=== PATIENT | female | born 1985 | race Caucasian/White ===

== ENCOUNTER 2020-05-24 05:50 | Inpatient (IN) | payer OTHER, SELFPAY ==
[2020-05-15 14:35] VITALS: BMI 30.2
[2020-05-24] VITALS (195 sets, daily range): BP systolic 59–120; BP diastolic 32–85; PULSE 63–160; TEMP 36.3–36.9; O2SAT 88–100; BMI 31.2
[2020-05-24 06:42] LABS: Basophils Percent Auto 0.1 % (0.2-1.2); Eosinophils Absolute Auto 0.1 K/mm3 (0-0.3); Eosinophils Percent Auto 0.7 % (0-4.4); Hematocrit 35.5 % (37.0-47.0); Hemoglobin 12.4 g/dL (12.0-15.0); Immature Granulocyte Absolute 0.03 K/mm3 (0.00-0.031); Immature Granulocyte Percent A 0.4 % (0-0.5); Immature Platelet Fraction Pct 4.4 % (0.9-11.2); Lymphocytes Absolute Auto 0.98 K/mm3 (0.9-3.2); Lymphocytes Percent Auto 14.2 % (18.3-44.2); Mean Corpuscular HGB Conc 34.9 g/dl (32-36); Mean Corpuscular Volume 94.4 fl (80-100); Mean Platelet Volume 10.9 fl (7.4-10.4); Monocytes Absolute Auto 0.4 K/mm3 (0.1-0.6); Monocytes Percent Auto 5.5 % (2.6-8.5); Neutrophils Absolute Auto 5.5 K/mm3 (1.3-6.7); Neutrophils Percent Auto 79.1 % (45.5-73.1); Platelet Count Result 143 k/mm3 (150-375); Red Blood Count 3.76 M/mm3 (4.2-5.4); White Blood Count 6.9 K/mm3 (4.5-10.0)
[2020-05-24] MEDS: OXYTOCIN 30 UNITS/NS 500 ML 30 UNITS/500 ML BAG IV CONT (06:47)
[2020-05-24] MEDS: OXYTOCIN 30 UNITS/NS 500 ML 30 UNITS/500 ML BAG 125 UNITS IV CONT (06:47)
[2020-05-24] MEDS: LACTATED RINGERS 1,000 ML 125 ML IV CONT ×4 (06:48→21:08)
--- NOTE | 2020-05-24 06:52 | LDADM ---
This patient, Meron Harrington, was admitted to Labor/Delivery/Recovery 103 on 05/24/20 at 05:50. Plans for labor, pain management and were discussed with patient. Patient/family oriented to hospital policies and general routines including ID bracelet, bed and alarms, visiting hours, pain management, procedures, bathroom and other care routines, personal items, smoking policy, room service/diet and guest tray routines, security routines, and visiting hours. Patient/Family are encouraged to report perceived risks to care and to ask questions if they do not understand what they are told or what they should do. See OBIX for further documentation.
--- NOTE | 2020-05-24 07:50 | WPDOBADMIT ---
Obstetrics - Admit Note Admission Note: 35y/o @ 39w2d here for elective induction of labor VSS Contractions irregular FHR category 1 Cervix 1-2/thick/posterior/-2 AROM moderate amount of clear odorless fluid Epdiural as desired Anticipate record reviewed. No pertinent additions to the history and/or any subsequent changes in the physical findings that are not consistent with the expected course of the were found. Additions to the history and/or subsequent changes in the physical findings follow. None.
--- NOTE | 2020-05-24 07:53 | PM.OBPNVD ---
OB - PN: Subj Subjective Date/time seen: 05/24/20 07:53 Interval history: patient desires sterilization Patient comments: no complaints and pain well controlled OB - PN: Obj Data Labs CBC & Chem 7: 05/24/20 06:31 Labs: Laboratory Results - last 24 hr 05/24/20 05/24/20 06:31 06:31 WBC 6.9 RBC 3.76 L Hgb 12.4 Hct 35.5 L MCV 94.4 MCH 33.0 MCHC 34.9 RDW 13.0 Plt Count 143 L MPV 10.9 H Immature Gran % (Auto) 0.4 Neut % (Auto) 79.1 H Lymph % (Auto) 14.2 L [place] % (Auto) 5.5 Eos % (Auto) 0.7 Baso % (Auto) 0.1 L Lymph # (Auto) 0.98 [place] # (Auto) 0.4 Eos # (Auto) 0.1 Baso # (Auto) 0.0 Abs Immat Gran (auto) 0.03 Absolute Neuts (auto) 5.5 Absolute Nucleated RBC 0.0 Nucleated RBC % 0.0 % Immature Plt Fraction 4.4 Blood Type A Positive Antibody Screen Negative OB - PN A/P Plan day: 2 Plan: routine care and discharge home Comments: to have PP BTL before D/C Time Spent With Patient Time: Total time spent is greater than 50% in coordination of care (as documented) at patient's floor/unit and/or counseling patient: Exam Const: General: comfortable, no acute distress and alert Resp: Effort & Inspection: normal respiratory effort Auscultation: no crackles, no rales and no rhonchi Cardio: Rate: regular rate Heart sounds: no click, no murmurs and no rubs GI: Inspection: non-distended GI Palp: No Tenderness to palpation present (GI) Auscultation: normal bowel sounds Extrem: General: normal to inspection, no pedal edema and no calf tenderness
[2020-05-24 09:02] LABS: Amphetamine Screen Urine Negative (Negative); Barbiturate Screen Urine Negative (Negative); Benzodiazepines Screen Urine Negative (Negative); Cannabinoid Screen Urine Negative (Negative); Cocaine Screen Urine Negative (Negative); Methadone Screen Urine Negative (Negative); Opiate Screen Urine Negative (Negative); Phencyclidine Screen Urine Negative (Negative)
[2020-05-24 10:06] LABS: Rapid Plasma Reagin Non-Reactive (NonReactive)
--- NOTE | 2020-05-24 10:47 | WPDANESEPP ---
Anes - Eval Pre Procedure Procedure: Labor epidural Date/Time: 05/24/20 10:47 Surgeon: Vimal Chatman M.D. Preop Diagnosis: pain during labor Pre Op Diagnosis: IOL Patient Data Age: 35 Gender: F Height: 1.6 m Weight: 80 kg Last Vital Signs Temp 36.9 C 05/24/20 08:00 Pulse 80 05/24/20 10:46 BP 109/65 05/24/20 10:46 Allergies Allergy/AdvReac Type Severity Reaction Status Date / Time Penicillins Allergy Mild Unknown Verified 05/24/20 06:46 Home Medications Medication Instructions Recorded Confirmed Type [id number] fumarate-FA 1 tablet PO DAILY 05/24/20 05/24/20 History [] Laboratory Tests 05/24/20 05/24/20 05/24/20 06:31 06:31 06:31 WBC 6.9 K/mm3 K/mm3 (4.5-10.0) RBC 3.76 M/mm3 L M/mm3 (4.2-5.4) Hgb 12.4 g/dL g/dL (12.0-15.0) Hct 35.5 % L % (37.0-47.0) MCV 94.4 fl fl (80-100) MCH 33.0 pg pg (26-34) MCHC 34.9 g/dl g/dl (32-36) RDW 13.0 % % (11.5-14.5) Plt Count 143 k/mm3 L k/mm3 (150-375) MPV 10.9 fl H fl (7.4-10.4) Immature Gran % (Auto) 0.4 % % (0-0.5) Neut % (Auto) 79.1 % H % (45.5-73.1) Lymph % (Auto) 14.2 % L % (18.3-44.2) [place] % (Auto) 5.5 % % (2.6-8.5) Eos % (Auto) 0.7 % % (0-4.4) Baso % (Auto) 0.1 % L % (0.2-1.2) Lymph # (Auto) 0.98 K/mm3 K/mm3 (0.9-3.2) [place] # (Auto) 0.4 K/mm3 K/mm3 (0.1-0.6) Eos # (Auto) 0.1 K/mm3 K/mm3 (0-0.3) Baso # (Auto) 0.0 K/mm3 K/mm3 (0.0-0.1) Abs Immat Gran (auto) 0.03 K/mm3 K/mm3 (0.00-0.031) Absolute Neuts (auto) 5.5 K/mm3 K/mm3 (1.3-6.7) Absolute Nucleated RBC 0.0 K/mm3 K/mm3 (0.0-0.012) Nucleated RBC % 0.0 % % (0.0-0.2) % Immature Plt Fraction 4.4 % % (0.9-11.2) Urine Opiates Screen Urine Methadone Screen Ur Barbiturates Screen Ur Phencyclidine Scrn Ur Amphetamine Screen U Benzodiazepines Scrn Urine Cocaine Screen U Cannabinoids Screen RPR Non-reactive (NonReactive) Blood Type A Positive Antibody Screen Negative 05/24/20 08:40 WBC RBC Hgb Hct MCV MCH MCHC RDW Plt Count MPV Immature Gran % (Auto) Neut % (Auto) Lymph % (Auto) [place] % (Auto) Eos % (Auto) Baso % (Auto) Lymph # (Auto) [place] # (Auto) Eos # (Auto) Baso # (Auto) Abs Immat Gran (auto) Absolute Neuts (auto) Absolute Nucleated RBC Nucleated RBC % % Immature Plt Fraction Urine Opiates Screen Negative (Negative) Urine Methadone Screen Negative (Negative) Ur Barbiturates Screen Negative (Negative) Ur Phencyclidine Scrn Negative (Negative) Ur Amphetamine Screen Negative (Negative) U Benzodiazepines Scrn Negative (Negative) Urine Cocaine Screen Negative (Negative) U Cannabinoids Screen Negative (Negative) RPR Blood Type Antibody Screen Patient hx anesthesia problems: none Family hx anesthesia problems: none PMFSH Past Medical History Medical History (Updated 05/24/20 @ 10:48 by Sonia León CRNA) IUP (intrauterine ), incidental Obesity Family History Family History (Updated 05/15/20 @ 14:36 by Lila Nichole RN) Mother Hypertension Social History Social History Smoking status: Former smoker Second hand tobacco smoke exposure: Yes Substance use: never Gender identity (if verbalized by the patient): Female Sexual Orientation (if Verbalized by the Patient): Straight or Heterosexual Spiritual care concerns: No Exam Day of Procedure 05/24/20 10:47
--- NOTE | 2020-05-24 23:37 | PC.NURSE ---
Pitocin infusion started at 0647 on by Gris Lau RN.
[2020-05-25] VITALS (108 sets, daily range): BP systolic 93–131; BP diastolic 51–85; PULSE 65–226; RESP 12–19; TEMP 36.4–37.3; O2SAT 94–100
[2020-05-25] MEDS: SODIUM CHLORIDE 0.9% IV 300 ML 600 ML I-UTERINE (00:58)
[2020-05-25] MEDS: LACTATED RINGERS 1,000 ML 125 ML IV CONT (00:58)
[2020-05-25] MEDS: CLINDAMYCIN 900 MG/NS 50 ML 900 MG/50 ML PIGGYBACK 50 MG IVPB (01:42)
--- NOTE | 2020-05-25 04:32 | PM.IMHP ---
H&P: HPI History of Present Illness Chief complaint: IOL Narrative: Meron Harrington is a 35 year old female here for elective induction of labor Review of Systems Review of Systems: All systems reviewed & are unremarkable except as noted in HPI and below PMFSH Past Medical History Medical History IUP (intrauterine ), incidental Obesity Family History Family History Mother Hypertension Social History Social History Smoking status: Former smoker Second hand tobacco smoke exposure: Yes Substance use: never Gender identity (if verbalized by the patient): Female Sexual Orientation (if Verbalized by the Patient): Straight or Heterosexual Spiritual care concerns: No Meds Home Medications and Allergies Home Medications Medication Instructions Recorded Confirmed Type [id number] fumarate-FA 1 tablet PO DAILY 05/24/20 05/24/20 History [] Allergies Allergy/AdvReac Type Severity Reaction Status Date / Time Penicillins Allergy Mild Unknown Verified 05/24/20 06:46 Vital Signs Vital Signs - 24 hr 05/24/20 06:28 05/24/20 06:31 05/24/20 06:46 Temperature Pulse Rate 96 106 H 93 Blood Pressure 93/51 L 106/72 102/85 Pulse Oximetry 05/24/20 07:01 05/24/20 07:16 05/24/20 07:31 Temperature Pulse Rate 83 98 86 Blood Pressure 107/70 104/72 113/70 Pulse Oximetry 05/24/20 07:45 05/24/20 08:00 05/24/20 08:01 Temperature 98.5 F Pulse Rate 89 81 Blood Pressure 116/73 113/72 Pulse Oximetry 05/24/20 08:16 05/24/20 08:46 05/24/20 09:01 Temperature Pulse Rate 86 93 94 Blood Pressure 104/71 110/70 111/76 Pulse Oximetry 05/24/20 09:16 05/24/20 09:31 05/24/20 09:46 Temperature Pulse Rate 95 76 73 Blood Pressure 113/76 114/72 112/65 Pulse Oximetry 05/24/20 10:01 05/24/20 10:16 05/24/20 10:32 Temperature Pulse Rate 83 92 75 Blood Pressure 117/73 96/73 L 109/67 Pulse Oximetry 05/24/20 10:46 05/24/20 11:01 05/24/20 11:16 Temperature Pulse Rate 80 76 77 Blood Pressure 109/65 107/74 108/69 Pulse Oximetry 05/24/20 11:31 05/24/20 11:46 05/24/20 12:01 Temperature Pulse Rate 65 74 70 Blood Pressure 103/81 104/66 103/65 Pulse Oximetry 05/24/20 12:16 05/24/20 12:30 05/24/20 12:45 Temperature Pulse Rate 80 74 95 Blood Pressure 74/53 L 98/52 L 97/58 L Pulse Oximetry 05/24/20 13:01 05/24/20 13:16 05/24/20 13:31 Temperature Pulse Rate 70 75 64 Blood Pressure 114/70 105/69 119/65 Pulse Oximetry 05/24/20 13:46 05/24/20 14:00 05/24/20 14:01 Temperature 98.3 F Pulse Rate 78 84 Blood Pressure 104/52 L 104/60 Pulse Oximetry 05/24/20 14:16 05/24/20 14:31 05/24/20 14:47 Temperature Pulse Rate 91 65 116 H Blood Pressure 110/60 111/67 92/51 L Pulse Oximetry 05/24/20 14:48 05/24/20 14:53 05/24/20 14:58 Temperature Pulse Rate Blood Pressure Pulse Oximetry 100 100 100 05/24/20 15:01 05/24/20 15:03 05/24/20 15:06 Temperature Pulse Rate 84 77 88 Blood Pressure 109/65 108/60 112/75 Pulse Oximetry 100 05/24/20 15:08 05/24/20 15:11 05/24/20 15:13 Temperature Pulse Rate 84 84 Blood Pressure 105/70 106/65 Pulse Oximetry 100 100 05/24/20 15:14 05/24/20 15:16 05/24/20 15:18 Temperature Pulse Rate 92 72 75 Blood Pressure 120/65 106/53 L 108/59 L Pulse Oximetry 100 05/24/20 15:21 05/24/20 15:23 05/24/20 15:26 Temperature Pulse Rate 69 78 73 Blood Pressure 104/63 109/63 115/60 Pulse Oximetry 99 05/24/20 15:28 05/24/20 15:30 05/24/20 15:33 Temperature Pulse Rate 99 116 H 120 H Blood Pressure 94/69 L 92/65 L 95/64 L Pulse Oximetry 97 97 05/24/20 15:36 05/24/20 15:38 05/24/20 15:40 Temperature Pulse Rate 70 74 64 Blood Pressure 116
--- NOTE | 2020-05-25 04:35 | PM.OBPNLAB ---
Pain Control Date/time seen: 05/25/20 04:35 Pt has pushed for 1.5 hours with no progress. Head remains at 0 station with caput. Persistent posterior position. Larger that previous deliveries. EFW 4 weeks ago was 6-11. Pt herself is able to feel that baby is not in the right position. I do not feel she is a candidate for vacuum or forceps. Spoke with Dr Chatman and he would like to proceed with primary . Spoke with patient and and they are both agreeable to proceed.
--- NOTE | 2020-05-25 04:48 | WPDANESEFPP ---
Anes - Eval Final PreProcedure Day of Procedure 05/25/20 04:48 Patient weight: overweight Heart: regular rate and rhythm Lungs: clear to auscultation and normal air movement Airway: Mallampati scale class II Neurological: alert and oriented ASA classification: II Emergent: yes Anesthetic plan: proceed Anesthesia type and monitoring: regional epidural and standard monitoring Informed Consent: The patient's anesthetic plan and its attendant risks and benefits were discussed with the patient/family/POA. Questions were solicited and answers provided to the satisfaction of the patient/family/POA.
--- NOTE | 2020-05-25 05:55 | PM.PROC ---
Procedure Note - Detailed Date of procedure: 05/25/20 Pre-op diagnosis: IOL Term gestation, Failure to Descend. Post-op diagnosis: same (Malposition of the Head) Procedure performed: low-transverse delivery Description of procedure: The patient was taken the operating room. She was prepped and draped in the dorsal supine position with leftward tilt after induction of spinal anesthetic. When anesthesia was found to be adequate a low-transverse skin incision was made and carried down to the level the fascia with the knife. The fascial incision was made at the midline with a scalpel. The fascial incision was extended laterally with Marcano scissors. The fascia was tented upward superior and inferior with Eladio clamps. The rectus muscles were dissected off bluntly. The rectus muscles at the midline. The preperitoneal fat was dissected bluntly at the superior aspect of the separate the rectus muscles. The peritoneal cavity was entered bluntly in the same area. The peritoneal incision was extended superior and inferior with good visualization of bladder. Bladder blade was inserted. A low-transverse incision was made on the uterus with the scalpel. It was carried down the level of the amniotic cavity with a knife. The amniotic cavity bluntly. The uterine incision was made laterally with blunt traction. The infant was delivered. The cord was clamped and cut. The infant was handed off to waiting pediatric staff. Cord bloods were obtained. The placenta was removed manually. The uterus was exteriorized. Uterus cleared of all clots and debris. Uterus closed in 0 Vicryl in a running locked fashion. An imbricating layer of 0 Vicryl was also placed on the to bolster the closure. The uterus was returned to the abdomen. The gutters were cleared of all clots and debris. The fascia was closed 0 Vicryl in a running fashion. Subcutaneous tissue was irrigated and bleeding areas were cauterized. The skin was closed with subcuticular absorbable andrés. The incision was covered with derma amaral. The patient tolerated the procedure well. She was taken recovery room stable condition. Sponge, lap, needle counts were correct x2. Anesthesia: spinal Surgeon: Berny Chatman MD Estimated blood loss (mL): 240 Drains: No Packing: No Pathology: none sent Complications: No immediate complications Condition: stable Disposition: floor Findings: Normal maternal anatomy. Average size infant with normal Apgars. Malposition of the head - LOP
[2020-05-25] MEDS: OXYTOCIN 30 UNITS/NS 500 ML 30 UNITS/500 ML BAG 125 UNITS IV CONT (08:05)
--- NOTE | 2020-05-25 09:16 | OBPPTRN ---
Patient transferred to room #283 via stretcher. Oriented to unit, room, information board, rooming in, admission packet and security measures. Patient verbalizes understanding.
[2020-05-25] MEDS: DEXTROSE 5%/0.45% SOD CHL 1,000 ML 125 ML IV CONT (12:13)
[2020-05-25] MEDS: DOCUSATE SODIUM 100 MG CAPSULE PO (17:44)
[2020-05-25] MEDS: KETOROLAC 30 MG/ML VIAL (*BKC) IV PUSH (19:52)
[2020-05-26 01:35] VITALS: BP 122/78; PULSE 96; RESP 15; TEMP 36.5; O2SAT 99
[2020-05-26] MEDS: IBUPROFEN 600 MG TABLET PO ×3 (04:12→23:40)
[2020-05-26 05:33] LABS: Basophils Absolute Auto 0.1 K/mm3 (0.0-0.1); Basophils Percent Auto 0.3 % (0.2-1.2); Eosinophils Absolute Auto 0.1 K/mm3 (0-0.3); Eosinophils Percent Auto 0.4 % (0-4.4); Hematocrit 28.5 % (37.0-47.0); Hemoglobin 9.8 g/dL (12.0-15.0); Immature Granulocyte Absolute 0.07 K/mm3 (0.00-0.031); Immature Granulocyte Percent A 0.5 % (0-0.5); Immature Platelet Fraction Pct 3.5 % (0.9-11.2); Lymphocytes Percent Auto 6.9 % (18.3-44.2); Mean Corpuscular HGB Conc 34.4 g/dl (32-36); Monocytes Absolute Auto 0.7 K/mm3 (0.1-0.6); Monocytes Percent Auto 4.9 % (2.6-8.5); Neutrophils Absolute Auto 12.5 K/mm3 (1.3-6.7); Platelet Count Result 123 k/mm3 (150-375); Red Blood Count 2.97 M/mm3 (4.2-5.4); Red Cell Distribution Width 13.2 % (11.5-14.5); White Blood Count 14.4 K/mm3 (4.5-10.0)
--- NOTE | 2020-05-26 07:38 | WPDANLDPN2 ---
Anes-Prog Note L&D Date/Time: 05/26/20 07:38 Comfortable throughout: labor and delivery Neuraxial method: epidural Epidural/Spinal procedure site: clean & non-tender Neuro status: Neuro function grossly intact. Cardiovascular status: normal Respiratory status: normal Airway patency: baseline Mental status: baseline Post-Op hydration status: normal Vital Signs: Last Vital Signs Temp 36.5 C 05/26/20 01:35 Pulse 96 05/26/20 01:35 Resp 15 05/26/20 01:35 BP 122/78 05/26/20 01:35 Pulse Ox 99 05/26/20 01:35 I/O: Intake & Output 05/25/20 05/25/20 05/26/20 15:59 23:59 07:59 Intake Total 300 1745 500 Output Total 750 1874 487 Balance -028 -705 -706 Post-procedural complaints: none Patient feedback: Patient satisfied with anesthetic care.
--- NOTE | 2020-05-26 07:41 | WPDANLDNPN2 ---
Anes-Prog Note L&D-Neuraxial Date/Time: 05/26/20 07:41 Neuraxial medications: epidural PF morphine Opiod-related complaints: none Patient feedback: Patient satisfied with post-operative pain management.
--- NOTE | 2020-05-26 07:42 | PM.OBPNVD ---
OB - PN: Subj Subjective Date/time seen: 05/26/20 07:42 Interval history: patient desires sterilization Patient comments: no complaints, pain well controlled, tolerating diet and flatus present OB - PN: Obj Data Labs CBC & Chem 7: 05/26/20 05:21 Labs: Laboratory Results - last 24 hr 05/26/20 05:21 WBC 14.4 H RBC 2.97 L Hgb 9.8 L Hct 28.5 L MCV 96.0 MCH 33.0 MCHC 34.4 RDW 13.2 Plt Count 123 L MPV 11.0 H Immature Gran % (Auto) 0.5 Neut % (Auto) 87.0 H Lymph % (Auto) 6.9 L [place] % (Auto) 4.9 Eos % (Auto) 0.4 Baso % (Auto) 0.3 Lymph # (Auto) 1.00 [place] # (Auto) 0.7 H Eos # (Auto) 0.1 Baso # (Auto) 0.1 Abs Immat Gran (auto) 0.07 H Absolute Neuts (auto) 12.5 H Absolute Nucleated RBC 0.0 Nucleated RBC % 0.0 % Immature Plt Fraction 3.5 OB - PN A/P Plan day: 1 Comments: Post Op LTCS - no problems, routine recovery Time Spent With Patient Time: Total time spent is greater than 50% in coordination of care (as documented) at patient's floor/unit and/or counseling patient: Exam Const: General: cooperative, healthy appearing, comfortable and no acute distress Resp: Auscultation: no crackles, no rales, no rhonchi and no wheezes Cardio: Rhythm: regular rhythm Heart sounds: no click and no murmurs GI: Inspection: non-distended Auscultation: normal bowel sounds Extrem: General: normal to inspection, no pedal edema and no calf tenderness
[2020-05-26 08:30] VITALS: BP 107/59; PULSE 84; RESP 18; TEMP 36.5; O2SAT 100
[2020-05-26] MEDS: MULTIVIT/MIN/PREN/FOL AC/IRON TABLET 1 TAB PO (09:28)
[2020-05-26] MEDS: SIMETHICONE 80 MG TAB.CHEW PO (09:29)
[2020-05-26] MEDS: DOCUSATE SODIUM 100 MG CAPSULE PO ×2 (09:29→15:58)
[2020-05-26] MEDS: POLYSACCHARIDE IRON COMPLEX 150 MG CAPSULE PO ×2 (09:29→15:58)
--- NOTE | 2020-05-26 14:25 | PC.NURSE ---
Mother called out for assist with feeding. Mother reports infant is sleepy after circumcision, and has had some difficulties and discomfort with latching. Assured mother sleepiness is normal for a few hours. Mother puts infant to breast in cradle position, allowing infant to self attach with a shallow latch. Reviewed positioning/alignment in cross cradle , holding breast in U hold and guided asymmetrical latch on. Discussed rational for each. After a few attempts, infant was able to latch correctly. nursed eagerly with steady draws and occasional swallowing noted, followed with long pausing. Advised to stimulate to keep awake and nursing effectively for increased intake and to assist with maintaining deep latch. Demonstrated how to adjust latch more deeply while feeding. Reviewed signs of a correct latch, effective nursing and suck swallow ratio. was able to maintain latch without discomfort to mother. Nipple care reviewed. Reviewed infant feeding cues, frequencies, duration of feedings, feeding elimination flow sheet, and signs of adequate intake. Instructed mother to call out for RN assistance if she is unable to latch infant for feeding or she has discomfort with nursing. Instructed feeding should be initiated three hours from start of last feeding or if feeding cues are noted before. Mother voiced understanding of information shared
[2020-05-26 19:40] VITALS: BP 110/63; PULSE 100; RESP 18; TEMP 36.9; O2SAT 99
--- NOTE | 2020-05-26 22:28 | PC.NURSE ---
Patient viewed the discharge video Mother & Baby Care, The First Two Weeks . Patient was given the opportunity and encouraged to ask questions. Patient verbalized understanding of information shared and has been given the mother/baby guide for home reference.
[2020-05-27 08:00] VITALS: BP 120/59; PULSE 88; RESP 16; TEMP 36.8; O2SAT 98
--- NOTE | 2020-05-27 08:00 | PC.NURSE ---
PT introductions made and plan of care discussed per post op c section, pain management, breast feeding, daily care activities and pending discharge to home. PT verbalized understanding of such care.
[2020-05-27] MEDS: DOCUSATE SODIUM 100 MG CAPSULE PO (08:10)
[2020-05-27] MEDS: MULTIVIT/MIN/PREN/FOL AC/IRON TABLET 1 TAB PO (08:10)
[2020-05-27] MEDS: POLYSACCHARIDE IRON COMPLEX 150 MG CAPSULE PO (08:10)
[2020-05-27] MEDS: IBUPROFEN 600 MG TABLET PO ×2 (08:10→14:33)
[2020-05-27] MEDS: SIMETHICONE 80 MG TAB.CHEW PO ×2 (08:10→12:01)
--- NOTE | 2020-05-27 08:33 | PM.OBPNVD ---
OB - PN: Subj Subjective Date/time seen: 05/27/20 08:33 Interval history: patient desires sterilization Patient comments: no complaints, pain well controlled, incisional pain, tolerating diet and flatus present OB - PN: Obj Data Labs CBC & Chem 7: 05/26/20 05:21 OB - PN A/P Plan day: 2 Plan: routine care Comments: POD#2 LTCS - no problems, to d/c Time Spent With Patient Time: Total time spent is greater than 50% in coordination of care (as documented) at patient's floor/unit and/or counseling patient: Exam Const: General: comfortable, no acute distress and alert Resp: Effort & Inspection: normal respiratory effort Auscultation: no crackles, no rales and no rhonchi Cardio: Rate: regular rate Heart sounds: no click, no murmurs and no rubs GI: Inspection: non-distended GI Palp: No Tenderness to palpation present (GI) Auscultation: normal bowel sounds Other: Incision - CDI Extrem: General: normal to inspection, no pedal edema and no calf tenderness
--- NOTE | 2020-05-27 08:33 | PM.OBDSVD ---
DS: Discharge Diagnosis Discharge Diagnosis (1) delivery delivered: Code(s): O82 - Encounter for delivery without indication Status: Acute OB - DS: Summary OB Procedures : None OB Procedures Intrapartum: OB Procedures: : None Peripartum Data Infant Delivery Method: Section Procedures: Procedures Operation Date: 05/25/20 05:00 Actual Procedures Side Surgeon p Section Bilateral Berny Chatman MD Status at Discharge Functional status at discharge: independent ambulation Time Spent with Patient Time attestation: Total time spent providing and/or coordinating discharge services: Discharge Plan Discharge Discharging Clinician: Berny Chatman Patient Disposition: Home, Self-Care Activity: pelvic rest Diet: regular Patient Instructions: Antibiotic Form Stand Alone Forms: General Discharge Information Follow-up/Referrals: Berny Chatman MD [Physician] - Discharge Medications: New hydrocodone-acetaminophen 5-325 mg tablet 1 - 2 tablet PO Q4H PRN (Reason: pain) Qty: 25 RF: 0 Continued 28-800 mg-mcg Tablet 1 tablet PO DAILY RF: 0 Date of admission: 05/24/20 05:50 Primary Care Provider: PHYSICIAN,PIECE PRESSER Admitting Provider: Berny Chatman Attending physician on admission: Berny Chatman
--- NOTE | 2020-05-27 09:30 | PC.NURSE ---
Mother is able to independently latch infant with appropriate positioning/alignment. She denies any nipple discomfort, is feeding as required and waking to feed if needed. has had at least 8 effective feedings in the past 24 hours, and is currently meeting outcomes for weight, output, jaundice and feeding frequencies. Mother states she feels confident to continue effective at home. Reviewed transition to breast milk, signs of adequate intake, and engorgement/relief. Instructed to call ICP if intake/output less than required. Reviewed regular medications mother is taking. Information provided per Kim. Reviewed community resources on the [facility] website and in the Mom/Baby guide. Information on outpatient services provided. Mother has no further questions at this time.
--- NOTE | 2020-05-27 14:00 | PC.NURSE ---
PT received discharge instructions per protocol and verbalized understanding of such care.
--- NOTE | 2020-05-27 15:20 | PC.NURSE ---
Patient discharged to home with , ambulatory. Follow-up appointment confirmed.
[2020-05-28 07:47] VITALS: BP 125/78; PULSE 95; RESP 20; TEMP 37.1; O2SAT 99
== END 2020-05-27 15:20 | disposition home or self-care (01) | DRG 788 ==
LOC: ANHLDR 05:55 → ANHOB2 05-25 08:09
PROVIDERS: Advanced Practice Midwife; Admitting Provider Obstetrics & Gynecology; Visit Provider Obstetrics & Gynecology
PROC: 10D00Z1 Extraction of Products of Conception, Low, Open Approach (ICD-10-PCS; CPT 59514; principal; 2020-05-25 05:00)
DX: O99.214 Obesity complicating childbirth (principal); Z37.0 Single live birth; Z3A.39 39 weeks gestation of pregnancy; E66.9 Obesity, unspecified; O32.4XX0 Maternal care for high head at term, not applicable or unspecified; O63.1 Prolonged second stage (of labor); O36.8330 Maternal care for abnormalities of the fetal heart rate or rhythm, third trimester, not applicable or unspecified; O32.8XX0 Maternal care for other malpresentation of fetus, not applicable or unspecified
CPT/HCPCS: 36415; 80307; 85025; 85055; 86592; 86850; 86900; 86901; A9270; J0131; J0690; J1885; J2274; J2370; J2405; J2590; J2795; J7030; J7120